=== PATIENT | female | born 1990 | race African-American/Black ===

== ENCOUNTER 2020-08-16 15:42 | Inpatient (IN) | payer SELFPAY ==
[~2020-08-16] VITALS: Ht 172.7 cm; Wt 32.2 kg
[2020-08-16] MEDS: MANNITOL 20% 250 ML IV SCH
[2020-08-16] MEDS ORDERED: ONDANSETRON HCL 4MG/2ML INJ IV STA (16:35)
[2020-08-16] MEDS ORDERED: MECLIZINE 25MG TABLET PO ONE (16:45)
[2020-08-16] MEDS ORDERED: SODIUM CHLORIDE 0.9% 1,000 ML IV ONE (16:45)
[2020-08-16] MEDS ORDERED: LEVETIRACETAM 500MG PREMIX 100 ML IV SCH (17:45)
[2020-08-16] MEDS ORDERED: MANNITOL 20% (20GM/100ML) BAG 500ML PREMIX IV NR (18:15)
[2020-08-16 19:57] LABS: CHLORIDE 108 mEq/L (98-107)
[2020-08-16 20:01] LABS: BASOPHILS % 0.4 % (0.0-2.0); EOSINOPHILS % 0.2 % (0.0-5.0); HEMATOCRIT. 45.3 % (36.0-48.0); HEMOGLOBIN. 14.7 g/dL (12.0-16.0); LYMPHOCYTES % 15.5 % (20.0-50.0); MEAN CORPUSCULAR HEMOGLOBIN 30.4 pg (28.0-32.0); MEAN CORPUSCULAR VOLUME 93.5 fL (81.0-99.0); MEAN PLATELET VOLUME 8.7 fl (7.4-10.4); MONOCYTES % 8.1 % (2.0-8.0); NEUTROPHILS % 75.8 % (40.0-76.0); PLATELET 284 x1000/uL (130-400); RED BLOOD CELL COUNT 4.84 mill/uL (4.2-5.4); RED CELL DISTRIBUTION WIDTH 14.5 % (11.6-14.6)
[2020-08-16 20:06] LABS: INR 1.1; PROTHROMBIN TIME 11.5 sec (9.6-11.0)
[2020-08-16 20:09] LABS: HCG SCREEN NEGATIVE
[2020-08-16] MEDS ORDERED: NICARDIPINE 50 MG in SODIUM CHLORIDE 0.9% 250 ML IV PRN (21:15)
[2020-08-16] MEDS ORDERED: NICARDIPINE 100 MG in SODIUM CHLORIDE 0.9% 100 ML IV PRN (21:30)
[2020-08-16] MEDS: MORPHINE SULFATE 2 MG/ML CPJ (NOT FOR IM USE) IV PRN (21:35)
[2020-08-17] VITALS (46 sets, daily range): BP systolic 108–159; BP diastolic 49–97
[2020-08-17] MEDS: MANNITOL 20% 250 ML IV SCH (05:10)
[2020-08-17] MEDS ORDERED: ONDANSETRON HCL 4MG/2ML INJ IV PRN (10:45)
[2020-08-17] MEDS ORDERED: MAGNESIUM/ALUMINUM HYDROXIDE/SIMETHICONE 30ML UDC PO PRN (10:45)
[2020-08-17] MEDS ORDERED: ACETAMINOPHEN 325MG TABLET PO PRN (10:45)
[2020-08-17] MEDS ORDERED: CLONIDINE 0.1MG TABLET PO PRN (10:45)
[2020-08-17] MEDS: LEVETIRACETAM 500MG PREMIX 100 ML IV SCH ×2 (11:06→21:58)
[2020-08-17] MEDS: DEXT 5%/LACTATED RINGERS 1,000 ML IV SCH ×2 (11:07→14:32)
[2020-08-17] MEDS: MORPHINE SULFATE 2 MG/ML CPJ (NOT FOR IM USE) IV PRN ×2 (11:52→23:35)
[2020-08-17 20:14] LABS: *AMPHETAMINES SCREEN URINE NEGATIVE (NEGATIVE); *BARBITURATES SCREEN URINE NEGATIVE (NEGATIVE); *BENZODIAZEPINES SCREEN URINE NEGATIVE (NEGATIVE)
[2020-08-17 20:15] LABS: METHADONE URINE SCREEN NEGATIVE (NEGATIVE); PHENCYCLIDINE URINE SCREEN NEGATIVE (NEGATIVE)
[2020-08-17 20:17] LABS: *COCAINE SCREEN URINE PRESUMTIVE POSITIVE (NEGATIVE); CANNABINOID URINE SCREEN PRESUMTIVE POSITIVE (NEGATIVE); OPIATES URINE SCREEN PRESUMTIVE POSITIVE (NEGATIVE)
[2020-08-18] VITALS (9 sets, daily range): BP systolic 119–165; BP diastolic 70–96
[2020-08-18] MEDS: DEXT 5%/LACTATED RINGERS 1,000 ML IV SCH (04:45)
[2020-08-18 06:57] LABS: HEMATOCRIT. 41.3 % (36.0-48.0); HEMOGLOBIN. 13.7 g/dL (12.0-16.0); MEAN CORPUSCULAR HEMOGLOBIN 31.4 pg (28.0-32.0); MEAN CORPUSCULAR VOLUME 94.6 fL (81.0-99.0); MEAN PLATELET VOLUME 8.4 fl (7.4-10.4); PLATELET 253 x1000/uL (130-400); RED BLOOD CELL COUNT 4.37 mill/uL (4.2-5.4); RED CELL DISTRIBUTION WIDTH 14.6 % (11.6-14.6)
[2020-08-18] MEDS ORDERED: OMEPRAZOLE 20MG CAPSULE EXTENDED RELEASE PO SCH (07:30)
[2020-08-18 08:29] LABS: CHLORIDE 106 mEq/L (98-107)
[2020-08-18] MEDS: LEVETIRACETAM 500MG PREMIX 100 ML IV SCH (09:04)
[2020-08-18] MEDS ORDERED: KEPP500 MT (10:47)
[2020-08-18 16:50] LABS: PLATELET ESTIMATE NORMAL
== END 2020-08-18 23:53 | disposition home or self-care (01) | DRG 55 ==
LOC: ER 15:42 → MICUSO 18:49 → 5EST 08-17 00:52
PROVIDERS: ADMIT Internal Medicine; ATTEND Neurological Surgery
DX: S06.6X9A Traumatic subarachnoid hemorrhage with loss of consciousness of unspecified duration, initial encounter (principal); X58.XXXA Exposure to other specified factors, initial encounter; F14.10 Cocaine abuse, uncomplicated; R26.89 Other abnormalities of gait and mobility; R40.2410 Glasgow coma scale score 13-15, unspecified time; F12.10 Cannabis abuse, uncomplicated; Y93.89 Activity, other specified; Y92.89 Other specified places as the place of occurrence of the external cause; Y99.8 Other external cause status
CPT/HCPCS: 36415; 80048; 80053; 80305; 80320; 84443; 84703; 85025; 93005; 99285; J1953; J2270; J2405; J3490; J7030; J7050; J7121; J8597; G0480